=== PATIENT | male | born 1965 | race Hispanic/Latino ===

== ENCOUNTER 2018-11-19 14:32 | Observation (INO) | payer BC ==
--- NOTE | 2018-11-19 16:05 | ED PDOC ---
Arrival/HPI - General Chief Complaint: Weakness/Neurological Deficit Time Seen by Provider: 11/19/18 15:10 Historian: Patient, Spouse - History of Present Illness Narrative History of Present Illness (Text): 11/19/18 17:44 53 y/o male with PMH of DM presents to the ED c/o generalized weakness x 2 weeks. 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 Associated intermittent SOB, not associated with exertion. Also c/o left flank pain worse with movement that intermittently radiates around to the left abdomen, associated urinary frequency and hesitancy. Reports his sugars have been elevated lately but that he takes his home insulin as prescribed [lantus 22 units at night and regular insulin sliding scale in the morning]. Has only had half a bagel to eat today, and has not taken any insulin. 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 No recent travel or sick contacts. Denies trauma/injury, fever, chills, chest pain, cough, N/V/D, weakness, numbness, paresthesias, difficulty speaking, difficulty walking, urinary symptoms, testicular pain/swelling, or any other associated symptoms. Of Note, patient quit smoking cigarettes 16 days ago. Past Medical History - Cardiac Hx Cardiac Disorders: No - Pulmonary Hx Respiratory Disorders: No - Neurological Hx Neurological Disorder: No - HEENT Hx HEENT Disorder: No - Renal Hx Renal Disorder: No - Endocrine/Metabolic Hx Endocrine Disorders: Yes Hx Diabetes Mellitus Type 1: No Hx Diabetes Mellitus Type 2: Yes - Psychiatric Hx Substance Use: No Family/Social History - Physician Review Nursing Documentation Reviewed: Yes Family/Social History: No Known Family HX Smoking Status: Former Smoker Hx Alcohol Use: No Hx Substance Use: No Allergies/Home Meds Allergies/Adverse Reactions: Allergies No Known Allergies Allergy (Verified 11/19/18 15:28) Home Medications: Home Meds Medication Instructions Recorded Confirmed Insulin Glargine, Recombina 26 unit SC HS 11/19/18 11/19/18 [Lantus] Insulin Regular, Human [Afrezza] 4 unit IH AC 11/19/18 11/19/18 Physical Exam Vital Signs Reviewed: Yes Vital Signs Temp Pulse Resp BP Pulse Ox 11/19/18 15:06 98.6 F 65 18 109/68 96 Temperature: Afebrile Blood Pressure: Normal Pulse: Regular Respiratory Rate: Normal Appearance: Positive for: Well-Appearing, Non-Toxic, Comfortable Pain Distress: None Mental Status: Positive for: Alert and Oriented X 3 - Systems Exam Head: Present: Atraumatic, Normocephalic Pupils: Present: PERRL Extroacular Muscles: Present: EOMI Conjunctiva: Present: Normal Mouth: Present: Moist Mucous Membranes Nose (External): Present: Atraumatic Nose (Internal): Present: Normal Inspection Neck: Present: Normal Range of Motion. No: Meningeal Signs, MIDLINE TENDERNESS Respiratory/Chest: Present: Clear to Auscultation, Decreased Breath Sounds (bilaterally), Rales (right lung base). No: Respiratory Distress, Accessory Muscle Use, Retracting, Rhonchi, Tachypneic Cardiovascular: Present: Regular Rate and Rhythm, Normal S1, S2. No: Murmurs Abdomen: Present: Tenderness (mild left side; left flank tenderness), Normal Bowel Sounds. No: Distention, Peritoneal Signs, Rebound, Guarding Back: Present: Normal Inspection. No: CVA Tenderness Upper Extremity: Present: Normal Inspection, Normal ROM, NORMAL PULSES, Neurovascularly Intact, Capillary Refill < 2s. No: Cyanosis, Edema Lower Extremity: Present: Normal Inspection, NORMAL PULSES, Normal ROM, Neurovascularly Intact, Capillary Refill < 2 s, Other (chronic right 5th digit deformity). No: Edema, Swelling Neurological: Present: GCS=15, CN II-XII Intact, Speech Normal, Motor Func Grossly Intact, Normal Sensory Function, Normal Cerebellar Funct, Gait Normal Skin: Present: Warm, Dry, Normal Color. No: Rashes Lymphatic: No: Cervical Adenopathy Psychiatric: Present: Alert, Oriented x 3, Normal Insight, Normal Concentration, Normal Affect, Normal Mood Medical Decision Making ED Course and Treatment: 11/19/18 15:58 Initial Plan: * CBC, CMP * Coags * BNP * Rapid Flu * CXR * EKG * IVF * Insulin * ASA CXR: no active disease CBC: mild anemia at 11.2 CMP: glucose 365; IVF, 7 units insulin ordered to correct Flu: negative UA: unremarkable EKG shows Q waves in anterior leads with multiple PACs; no old EKG for comparison CXR: no active disease Case reviewed with Dr. Hogan, who recommends CT Abd/Pelvis without contrast to evaluate left flank pain. Otherwise agrees with plan of care and disposition. 17:55 CT Abd/Pelvis shows possible mesenteric adenitis, hiatal hernia, splenomegaly, hepatomegaly Blood sugar has dropped to 301 on fingerstick 18:[address] Dale, who accepted patient for inpatient admission to [facility] with diagnosis of hyperglycemia, ekg changes, and fatigue. - Lab Interpretations Lab Results: 11/19/18 16:02 11/19/18 16:02 Lab Results 11/19/18 17:01: Urine Color Yellow, Urine Appearance Clear, Urine pH 6.0, Ur Sp ecific [place] 1.020, Urine Protein Negative, Urine Glucose (UA) >=1000, Urine Ketones Negative, Urine Blood Negative, Urine Nitrate Negative, Urine Bilirubin Negative, Urine Urobilinogen 1.0 H, Ur Leukocyte Esterase Negative 11/19/18 16:59: Urine Opiates Screen Negative, Urine Methadone Screen Negative, Ur Barbiturates Screen Negative, Ur Phencyclidine Scrn Negative, Ur Amphetamines Screen Negative, U Benzodiazepines Scrn Negative, U Oth Cocaine Metabols Negative, U Cannabinoids Screen Negative 11/19/18 16:02: Thyroxine (T4) 6.9, Total T3 0.79 L, TSH 3rd Generation 3.65 11/19/18 16:02: PT 13.3 H, INR 1.16, APTT 30.5 11/19/18 16:02: Sodium 133, Potassium 4.3, Chloride 96 L, Carbon Dioxide 32, Anion Gap 9 L, BUN 19, Creatinine 0.8, Est GFR ( Amer) > 60, Est GFR (Non-Af Amer) > 60, Random Glucose 365 H*, Calcium 8.6, Phosphorus 3.9, Magnesium 2.3 H, Total Bilirubin 0.5, AST 25, ALT 26, Alkaline Phosphatase 152 H , Troponin I < 0.01, NT-Pro-B Natriuret Pep 339, Total Protein 6.7, Albumin 3.4, Globulin 3.3, Albumin/Globulin Ratio 1.0 L 11/19/18 16:02: Influenza Typ A,B (EIA) Negative for flu a/b 11/19/18 16:02: WBC 7.7, RBC 3.59, Hgb 11.2 L, Hct 33.7 L, MCV 93.9, MCH 31.2, MCHC 33.2, RDW 13.2, Plt Count 292, MPV 9.8, Gran % 60.1, Lymph % (Auto) 21.5 L, Alpine % (Auto) 17.3 H, Eos % (Auto) 0.7 L, Baso % (Auto) 0.4, Gran # 4.63, Lymph # (Auto) 1.7, Alpine # (Auto) 1.3 H, Eos # (Auto) 0.1, Baso # (Auto) 0.03 I have reviewed the lab results: Yes - RAD Interpretation Narrative RAD Interpretations (Text): 11/19/18 17:43 CT Abd/Pelvis w/o IV Contrast FINDINGS: There is limited evaluation of the solid organs without the administration of IV contrast. LOWER THORAX: Bibasilar atelectasis/infiltrates. No visible pleural effusion or pneumothorax. Small hiatal hernia/distal esophageal wall thickening. LIVER: Hepatomegaly. GALLBLADDER AND BILE DUCTS: Unremarkable unenhanced appearance. PANCREAS: Unremarkable unenhanced appearance. SPLEEN: Borderline splenomegaly. ADRENALS: Unremarkable unenhanced appearance. KIDNEYS AND URETERS: No hydronephrosis or obstructing renal calculus. BLADDER: The urinary bladder appears unremarkable. REPRODUCTIVE: The prostate gland measures approximately 3.2 x 4.1 cm. APPENDIX: The appendix appears within normal limits of caliber. No secondary signs of acute appendicitis. BOWEL: The stomach is nondistended. Lack of oral contrast limits evaluation for bowel pathology. The bowel loops appear within normal limits of caliber without evidence of intestinal obstruction. PERITONEUM: No significant free fluid. No definite free air. LYMPH NODES: Nonspecific mesenteric adenopathy. VASCULATURE: No significant atherosclerotic calcifications of the aorta. No aortic aneurysm. BONES: Degenerative changes. OTHER FINDINGS: None. IMPRESSION: Nonspecific mesenteric adenopathy. Correlate clinically for possibility of mesenteric adenitis. No evidence of hydronephrosis or obstructing calculus. Hepatomegaly. Borderline splenomegaly. Bibasilar atelectasis/infiltrates. No visible pleural effusion or pneumothorax. Small hiatal hernia/distal esophageal wall thickening. CXR: No active disease Radiology Orders: 11/19/18 15:50 CHEST PORTABLE [RAD] Stat Director Money: Radiologist - EKG Interpretation EKG Interpretation (Text): Rate 61; NSR with PACs; Normal Intervals; No STEMI, Q waves in anterior leads, nonspecific Twave/ST segment changes Interpreted by ED Physician: Yes (Dr. Hogan) Type: 12 lead EKG Comparison: No previous EKG avail. Disposition/Present on Arrival - Present on Arrival Any Indicators Present on Arrival: No History of DVT/PE: No History of Uncontrolled Diabetes: No Urinary Catheter: No History of Decub. Ulcer: No History Surgical Site Infection Following: None - Disposition Have Diagnosis and Disposition been Completed?: Yes Diagnosis: Hyperglycemia, Fatigue, Anemia, Acute electrocardiogram changes, Flank pain Disposition: HOSPITALIZED Disposition Time: 17:45 Patient Plan: Admission Patient Problems: Current Active Problems Problem Status Onset Acute electrocardiogram changes Acute Anemia Acute Fatigue Acute Hyperglycemia Acute Condition: STABLE
[2018-11-19 16:07] LABS: BASO # 0.03 K/mm3 (0.0-2.0); BASO % 0.4 % (0.0-3.0); EOS # 0.1 (0.0-0.7); EOS % 0.7 % (1.5-5.0); GRAN # 4.63 (1.4-6.5); GRAN % 60.1 % (50.0-68.0); HEMOGLOBIN 11.2 g/dL (14.0-18.0); LYMPH # 1.7 (1.2-3.4); LYMPH % 21.5 % (22.0-35.0); MEAN CELL VOLUME 93.9 fl (80.0-105.0); MEAN CORPUSCULAR HEMOGLOBIN 31.2 pg (25.0-35.0); MEAN CORPUSCULAR HGB CONC 33.2 g/dl (31.0-37.0); MEAN PLATELET VOLUME 9.8 fl (7.0-11.0); MONO # 1.3 (0.1-0.6); MONO % 17.3 % (1.0-6.0); RBC 3.59 10^6/uL (3.5-6.1); RED CELL DISTRIBUTION WIDTH 13.2 % (11.5-14.5); WHITE BLOOD COUNT 7.7 10^3/uL (4.5-11.0)
[2018-11-19 16:17] LABS: INR 1.16; PARTIAL THROMBOPLASTIN TIME 30.5 Seconds (25.1-36.5); PROTHROMBIN TIME 13.3 SECONDS (9.4-12.5)
[2018-11-19] MEDS ORDERED: Insulin Regular 1 UNITS/0.01 ML ML SC STA (16:23)
[2018-11-19] MEDS ORDERED: Sodium Chloride 0.9% 500 ML IV STA (16:27)
--- NOTE | 2018-11-19 16:27 | RAD ---
Date of service: 11/19/2018 HISTORY: SOB COMPARISON: No prior. FINDINGS: LUNGS: No active pulmonary disease. PLEURA: No significant pleural effusion identified, no pneumothorax apparent. CARDIOVASCULAR: No aortic atherosclerotic calcification present. Normal cardiac size. No pulmonary vascular congestion. OSSEOUS STRUCTURES: No significant abnormalities. VISUALIZED UPPER ABDOMEN: Normal. OTHER FINDINGS: None. IMPRESSION: No active disease.
[2018-11-19 16:29] LABS: B-TYPE NATRIURETIC PEPTIDE 339 pg/mL (0-450); TROPONIN I < 0.01 ng/mL
[2018-11-19 16:35] LABS: T4 6.9 ug/dL (5.5-11.0)
[2018-11-19 16:36] LABS: ALBUMIN 3.4 g/dL (3.0-4.8); ALT/SGPT 26 U/L (7-56); AST/SGOT 25 U/L (17-59); BLOOD UREA NITROGEN 19 mg/dL (7-21); CALCIUM 8.6 mg/dL (8.4-10.5); GFR NON-AFRICAN AMERICAN > 60
[2018-11-19 16:49] LABS: T3 0.79 ng/mL (0.97-1.69)
[2018-11-19 17:07] LABS: URINE BILIRUBIN NEGATIVE (NEGATIVE); URINE BLOOD NEGATIVE (NEGATIVE); URINE GLUCOSE (UA) >=1000 mg/dL (NEGATIVE); URINE LEUKOCYTE ESTERASE NEGATIVE Leu/uL (NEGATIVE); URINE PROTEIN NEGATIVE mg/dL (<30 mg/dL)
[2018-11-19 17:16] LABS: URINE APPEARANCE CLEAR (CLEAR); URINE COLOR YELLOW (YELLOW)
[2018-11-19 17:36] LABS: BARBITURATES, UR NEGATIVE (NEGATIVE); BENZODIAZEPINES, UR NEGATIVE (NEGATIVE); OPIATES, UR NEGATIVE (NEGATIVE); PHENCYCLIDINE, UR NEGATIVE (NEGATIVE)
--- NOTE | 2018-11-19 17:44 | CT ---
PROCEDURE: CT Abdomen and Pelvis without Oral or IV contrast. HISTORY: flank pain COMPARISON: None available. TECHNIQUE: Contiguous axial images of the abdomen and pelvis. No oral or IV contrast administered. Coronal and Sagittal reformats generated and reviewed. Radiation dose: Total exam DLP = 422.35 mGy-cm. This CT exam was performed using one or more of the following dose reduction techniques: Automated exposure control, adjustment of the mA and/or kV according to patient size, and/or use of iterative reconstruction technique. FINDINGS: There is limited evaluation of the solid organs without the administration of IV contrast. LOWER THORAX: Bibasilar atelectasis/infiltrates. No visible pleural effusion or pneumothorax. Small hiatal hernia/distal esophageal wall thickening. LIVER: Hepatomegaly. GALLBLADDER AND BILE DUCTS: Unremarkable unenhanced appearance. PANCREAS: Unremarkable unenhanced appearance. SPLEEN: Borderline splenomegaly. ADRENALS: Unremarkable unenhanced appearance. KIDNEYS AND URETERS: No hydronephrosis or obstructing renal calculus. BLADDER: The urinary bladder appears unremarkable. REPRODUCTIVE: The prostate gland measures approximately 3.2 x 4.1 cm. APPENDIX: The appendix appears within normal limits of caliber. No secondary signs of acute appendicitis. BOWEL: The stomach is nondistended. Lack of oral contrast limits evaluation for bowel pathology. The bowel loops appear within normal limits of caliber without evidence of intestinal obstruction. PERITONEUM: No significant free fluid. No definite free air. LYMPH NODES: Nonspecific mesenteric adenopathy. VASCULATURE: No significant atherosclerotic calcifications of the aorta. No aortic aneurysm. BONES: Degenerative changes. OTHER FINDINGS: None. IMPRESSION: Nonspecific mesenteric adenopathy. Correlate clinically for possibility of mesenteric adenitis. No evidence of hydronephrosis or obstructing calculus. Hepatomegaly. Borderline splenomegaly. Bibasilar atelectasis/infiltrates. No visible pleural effusion or pneumothorax. Small hiatal hernia/distal esophageal wall thickening.
--- NOTE | 2018-11-19 18:24 | CP.PCM.HP ---
<BradlyDarshana - Last Filed: 11/20/18 13:44> History of Present Illness - History of Present Illness History of Present Illness: Darshana Abdullahi, PGY-1 Medicine H&P for Dr. Ibanez: CC: Generalized weakness Pt is a 53 yo M with pmhx of IDDM who presents to the ED for 2 week hx of generalized weakness and intermittent SOB. Pt also states that recently he has been requiring more insulin for similar meals lately. Pt states that he also noted that his sugars have been running higher lately. Pt states that he is complaint on his medication and states that he currently takes 26 units of lantu s at night and a sliding scale during the day. Pt denies any recent changes in his insulin regimen or his diet. He also states that he has neuropathy and is s/p partial 5th digit R metatarsal amputation. 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 At this time he denies fevers, chills, lightheadedness, headaches, numbness, tingling, chest pain, cough, abd pain, n/v, c/d, dysuria or frequency. He admits to intermittent SOB and cough when he smokes. He also admits to L flank pain but denies hematuria. Pmhx: IDDM Pshx: Denies Meds: Insulin All: NKDA Social: quit smoking 16 days ago, previous 1ppd x 36 yrs, denies any EtOH or illicit drug use Fam: Paternal Grandfather: DM PMD: [employer] Pharm: [employer] in [place] Present on Admission - Present on Admission Any Indicators Present on Admission: No Review of Systems - Review of Systems Review of Systems: 12 point ROS reviewed and negative except for noted in HPI above. Past Patient History - Past Social History Smoking Status: Never Smoked - CARDIAC Hx Cardiac Disorders: No - PULMONARY Hx Respiratory Disorders: No - NEUROLOGICAL Hx Neurological Disorder: No - HEENT Hx HEENT Problems: No - RENAL Hx Chronic Kidney Disease: No - ENDOCRINE/METABOLIC Hx Endocrine Disorders: Yes Hx Diabetes Mellitus Type 1: No Hx Diabetes Mellitus Type 2: Yes - PSYCHIATRIC Hx Substance Use: No - SURGICAL HISTORY Hx Surgeries: No Meds Allergies/Adverse Reactions: Allergies Allergy/AdvReac Type Severity Reaction Status Date / Time No Known Allergies Allergy Verified 11/19/18 15:28 Physical Exam - Constitutional Appears: Non-toxic, No Acute Distress - Head Exam Head Exam: ATRAUMATIC, NORMAL INSPECTION, NORMOCEPHALIC - Eye Exam Eye Exam: EOMI, Normal appearance, PERRL - Respiratory Exam Respiratory Exam: Clear to Auscultation Bilateral, NORMAL BREATHING PATTERN. absent: Accessory Muscle Use, Decreased Breath Sounds, Rales, Rhonchi, Wheezes, Respiratory Distress, Stridor - Cardiovascular Exam Cardiovascular Exam: RRR, +S1, +S2. absent: Gallop, Rubs - GI/Abdominal Exam GI & Abdominal Exam: Normal Bowel Sounds, Soft. absent: Distended, Firm, Guarding, Tenderness - Extremities Exam Extremities exam: Positive for: normal capillary refill, pedal pulses present. Negative for: calf tenderness, pedal edema Additional comments: Pt has evidence of 5th digit partial amputation on R foot, with a well healed scar and no noted erythema or drainage. - Back Exam Back exam: NORMAL INSPECTION. absent: CVA tenderness (L), CVA tenderness (R) - Neurological Exam Neurological exam: Alert, Oriented x3 - Psychiatric Exam Psychiatric exam: Normal Affect, Normal Mood - Skin Skin Exam: Dry, Intact (except where noted above), Normal Color, Warm Results - Vital Signs Recent Vital Signs: Last Vital Signs Temp 98.6 F 11/19/18 15:06 Pulse 85 11/19/18 18:02 Resp 18 11/19/18 18:02 BP 108/70 11/19/18 18:02 Pulse Ox 99 11/19/18 18:02 - Labs Result Diagrams: 11/20/18 02:00 11/20/18 02:00 Labs: Laboratory Results - last 24 hr 11/19/18 11/19/18 11/19/18 15:15 16:02 16:02 WBC 7.7 RBC 3.59 Hgb 11.2 L Hct 33.7 L MCV 93.9 MCH 31.2 MCHC 33.2 RDW 13.2 Plt Count 292 MPV 9.8 Gran % 60.1 Lymph % (Auto) 21.5 L Mcminn % (Auto) 17.3 H Eos % (Auto) 0.7 L Baso % (Auto) 0.4 Gran # 4.63 Lymph # (Auto) 1.7 Mcminn # (Auto) 1.3 H Eos # (Auto) 0.1 Baso # (Auto) 0.03 PT INR APTT Sodium Potassium Chloride Carbon Dioxide Anion Gap BUN Creatinine Est GFR ( Amer) Est GFR (Non-Af Amer) POC Glucose (mg/dL) 350 H Random Glucose Calcium Phosphorus Magnesium Total Bilirubin AST ALT Alkaline Phosphatase Troponin I NT-Pro-B Natriuret Pep Total Protein Albumin Globulin Albumin/Globulin Ratio Thyroxine (T4) Total T3 TSH 3rd Generation Urine Color Urine Appearance Urine pH Ur Specific Hanna Urine Protein Urine Glucose (UA) Urine Ketones Urine Blood Urine Nitrate Urine Bilirubin Urine Urobilinogen Ur Leukocyte Esterase Urine Opiates Screen Urine Methadone Screen Ur Barbiturates Screen Ur Phencyclidine Scrn Ur Amphetamines Screen U Benzodiazepines Scrn U Oth Cocaine Metabols U Cannabinoids Screen Influenza Typ A,B (EIA) Negative for flu a/b 11/19/18 11/19/18 11/19/18 16:02 16:02 16:02 WBC RBC Hgb Hct MCV MCH MCHC RDW Plt Count MPV Gran % Lymph % (Auto) Mcminn % (Auto) Eos % (Auto) Baso % (Auto) Gran # Lymph # (Auto) Mcminn # (Auto) Eos # (Auto) Baso # (Auto) PT 13.3 H INR 1.16 APTT 30.5 Sodium 133 Potassium 4.3 Chloride 96 L Carbon Dioxide 32 Anion Gap 9 L BUN 19 Creatinine 0.8 Est GFR ( Amer) > 60 Est GFR (Non-Af Amer) > 60 POC Glucose (mg/dL) Random Glucose 365 H* Calcium 8.6 Phosphorus 3.9 Magnesium 2.3 H Total Bilirubin 0.5 AST 25 ALT 26 Alkaline Phosphatase 152 H Troponin I < 0.01 NT-Pro-B Natriuret Pep 339 Total Protein 6.7 Albumin 3.4 Globulin 3.3 Albumin/Globulin Ratio 1.0 L Thyroxine (T4) 6.9 Total T3 0.79 L TSH 3rd Generation 3.65 Urine Color Urine Appearance Urine pH Ur Specific Hanna Urine Protein Urine Glucose (UA) Urine Ketones Urine Blood Urine Nitrate Urine Bilirubin Urine Urobilinogen Ur Leukocyte Esterase Urine Opiates Screen Urine Methadone Screen Ur Barbiturates Screen Ur Phencyclidine Scrn Ur Amphetamines Screen U Benzodiazepines Scrn U Oth Cocaine Metabols U Cannabinoids Screen Influenza Typ A,B (EIA) 11/19/18 11/19/1819 16:59 17:01 17:53 WBC RBC Hgb Hct MCV MCH MCHC RDW Plt Count MPV Gran % Lymph % (Auto) Mcminn % (Auto) Eos % (Auto) Baso % (Auto) Gran # Lymph # (Auto) Mcminn # (Auto) Eos # (Auto) Baso # (Auto) PT INR APTT Sodium Potassium Chloride Carbon Dioxide Anion Gap BUN Creatinine Est GFR ( Amer) Est GFR (Non-Af Amer) POC Glucose (mg/dL) 301 H Random Glucose Calcium Phosphorus Magnesium Total Bilirubin AST ALT Alkaline Phosphatase Troponin I NT-Pro-B Natriuret Pep Total Protein Albumin Globulin Albumin/Globulin Ratio Thyroxine (T4) Total T3 TSH 3rd Generation Urine Color Yellow Urine Appearance Clear Urine pH 6.0 Ur Specific Hanna 1.020 Urine Protein Negative Urine Glucose (UA) >=1000 Urine Ketones Negative Urine Blood Negative Urine Nitrate Negative Urine Bilirubin Negative Urine Urobilinogen 1.0 H Ur Leukocyte Esterase Negative Urine Opiates Screen Negative Urine Methadone Screen Negative Ur Barbiturates Screen Negative Ur Phencyclidine Scrn Negative Ur Amphetamines Screen Negative U Benzodiazepines Scrn Negative U Oth Cocaine Metabols Negative U Cannabinoids Screen Negative Influenza Typ A,B (EIA) Assessment & Plan - Assessment and Plan (Free Text) Assessment: Pt is a 53 yo M with pmhx of IDDM who presents to the ED for 2 week hx of generalized weakness and intermittent SOB. Plan: 1) Generalized weakness - Likely 2/2 hyperglycemia - TSH - Trend trops - Lipid profile - UA - UCx - ISS to better control sugar - Cont to monitor 2) Uncontrolled IDDM: - HbA1c - ISS - medium - Carb consistent diet - Levamir 26 units qhs PPx: GI: Protonix 40 DVT: SCDs Case seen and discussed with Dr. Shamar Abdullahi, PGY-1 <Maggie Ibanez - Last Filed: 11/23/18 20:36> Results - Vital Signs Recent Vital Signs: Last Vital Signs Temp 98.4 F 11/21/18 12:00 Pulse 54 L 11/21/18 12:00 Resp 21 11/21/18 12:00 BP 109/55 L 11/21/18 12:00 Pulse Ox 98 11/21/18 06:00 - Labs Result Diagrams: 11/21/18 07:00 11/21/18 07:00 Attending/Attestation - Attestation I have personally seen and examined this patient.: Yes I have fully participated in the care of the patient.: Yes I have reviewed all pertinent clinical information: Yes Notes (Text): 11/23/18 20:29 pt seen with the resident by the bedside. Case discussed in detail. Agree with documentation,assessment and plan of treatment,
[2018-11-19] MEDS ORDERED: Dextrose 50% SYRINGE Inj (50 ml) IV PRN (20:24)
[2018-11-19] MEDS: Insulin Lispro (humaLOG) MEDIUM Coverage SC SCH (22:20)
[2018-11-20 02:29] LABS: BASO # 0.04 K/mm3 (0.0-2.0); BASO % 0.6 % (0.0-3.0); EOS # 0.1 (0.0-0.7); GRAN # 3.84 (1.4-6.5); GRAN % 55.7 % (50.0-68.0); LYMPH # 2.1 (1.2-3.4); LYMPH % 30.7 % (22.0-35.0); MEAN CORPUSCULAR HEMOGLOBIN 31.5 pg (25.0-35.0); MEAN CORPUSCULAR HGB CONC 33.5 g/dl (31.0-37.0); MEAN PLATELET VOLUME 9.6 fl (7.0-11.0); MONO # 0.8 (0.1-0.6); RBC 3.81 10^6/uL (3.5-6.1); RED CELL DISTRIBUTION WIDTH 13.3 % (11.5-14.5); WHITE BLOOD COUNT 6.9 10^3/uL (4.5-11.0)
[2018-11-20 02:40] LABS: ALBUMIN 3.7 g/dL (3.0-4.8); ALT/SGPT 24 U/L (7-56); AST/SGOT 51 U/L (17-59); BLOOD UREA NITROGEN 16 mg/dL (7-21); CALCIUM 8.6 mg/dL (8.4-10.5); GFR NON-AFRICAN AMERICAN > 60; HDL CHOLESTEROL 27 mg/dL (29-60)
[2018-11-20 02:50] LABS: LDL CHOLESTEROL 80 mg/dL (0-129); TROPONIN I < 0.01 ng/mL
[2018-11-20 04:29] VITALS: BMI 22.4
[2018-11-20] MEDS: Pantoprazole 40 mg EC Tab PO SCH (07:06)
[2018-11-20] MEDS: Insulin Lispro (humaLOG) MEDIUM Coverage SC SCH ×4 (07:11→21:55)
--- NOTE | 2018-11-20 09:45 | CARD ---
APPROVED REPORT Date of service: 11/19/2018 EKG Measurement Heart [id number] [place] 162P [id number] <Conclusion> Sinus rhythm with premature atrial complexes Septal infarct, age undetermined NSSTW changes
[2018-11-20] MEDS: Insulin Detemir 100 units/ml Vial (Levemir) SC SCH ×2 (09:54→21:53)
[2018-11-20] MEDS ORDERED: Metoprolol 1 mg/ml Inj IVP STA (11:17)
[2018-11-20] MEDS ORDERED: Metoprolol 1 mg/ml Inj ONE (11:25)
--- NOTE | 2018-11-20 13:57 | CP.PCM.PN ---
<Darshana Abdullahi - Last Filed: 11/20/18 15:58> Subjective - Date & Time of Evaluation Date of Evaluation: 11/20/18 Time of Evaluation: 13:49 - Subjective Subjective: Darshana Abdullahi, PGY-[address] Dale: Pt was seen and examined this AM at bedside. Pt states that he continues to have L sided abdominal pain. He states that hes generalized weakness has improved. Pt states that his SOB only truly affects him when he smokes, and has not had an issue with it so far during this stay. He denies having any acute complaints at this time and denies fevers, chills, headache, SOB, cough, chest pain, abd pain, n/v, c/d, or dysuria. Objective - Vital Signs/Intake and Output Vital Signs (last 24 hours): Temp Pulse Resp BP Pulse Ox 98.8 F 136 H 20 102/74 99 11/20/18 06:00 11/20/18 11:29 11/20/18 06:00 11/20/18 11:29 11/20/18 00:36 Intake and Output: 11/20/18 11/20/18 06:59 18:59 Intake Total 270 Balance 270 - Medications Medications: Current Medications Aspirin (Ecotrin) 81 mg PO DAILY [facility] Last Admin: 11/20/18 11:48 Dose: 81 mg Atorvastatin Calcium (Lipitor) 20 mg PO DIN [facility] Dextrose (Dextrose 50% Inj) 0 ml IV STAT PRN; Protocol PRN Reason: Hypoglycemia Protocol Dextrose (Dextrose 5% In Water 1000 Ml) 1,000 mls @ 0 mls/hr IV .Q0M PRN; Protocol PRN Reason: Hypoglycemia Protocol Insulin Detemir (Levemir) 13 unit SC Q12H [facility] Last Admin: 11/20/18 09:54 Dose: 13 units Insulin Human Lispro (Humalog Med) 0 units SC ACHS [facility]; Protocol Last Admin: 11/20/18 11:48 Dose: 7 unit Metoprolol Tartrate (Lopressor) 25 mg PO BID [facility] Last Admin: 11/20/18 11:38 Dose: Not Given Pantoprazole Sodium (Protonix Ec Tab) 40 mg PO 0600 [facility] Last Admin: 11/20/18 07:06 Dose: 40 mg - Labs Labs: 11/20/18 02:00 11/20/18 02:00 PT 13.3 SECONDS (9.4-12.5) H 11/19/18 16:02 INR 1.16 11/19/18 16:02 APTT 30.5 Seconds (25.1-36.5) 11/19/18 16:02 - Constitutional Appears: Non-toxic, No Acute Distress - Head Exam Head Exam: ATRAUMATIC, NORMAL INSPECTION, NORMOCEPHALIC - Eye Exam Eye Exam: EOMI, Normal appearance - Respiratory Exam Respiratory Exam: Clear to Ausculation Bilateral, NORMAL BREATHING PATTERN. absent: Accessory Muscle Use, Rales, Rhonchi, Wheezes, Respiratory Distress, Stridor - Cardiovascular Exam Cardiovascular Exam: RRR, +S1, +S2. absent: Gallop, Rubs - GI/Abdominal Exam GI & Abdominal Exam: Soft, Normal Bowel Sounds. absent: Firm, Guarding, Rigid, Tenderness - Extremities Exam Additional comments: Pt has evidence of 5th digit partial amputation on R foot, with a well healed scar and no noted erythema or drainage. - Back Exam Back Exam: NORMAL INSPECTION. absent: CVA tenderness (L), CVA tenderness (R) - Neurological Exam Neurological Exam: Alert, Awake, Oriented x3 - Psychiatric Exam Psychiatric exam: Normal Affect, Normal Mood - Skin Skin Exam: Dry, Intact (except where noted above), Normal Color, Warm Assessment and Plan - Assessment and Plan (Free Text) Assessment: Pt is a 53 yo M with pmhx of IDDM who presents to the ED for 2 week hx of generalized weakness and intermittent SOB. Pt noted to have hyperglycemia. Pt also noted to be sinus tach on monitor and has elevated BP. Cardio consulted. Plan: 1) Generalized weakness - Likely 2/2 hyperglycemia - TSH - TSH in wnl - Trops (-) x 3 - Lipid profile - T, Chol: 151, LDL:80, HDL:27 - UA (-) - ISS to better control sugar - Cont to monitor 2) Uncontrolled IDDM: - HbA1c - ISS - medium - Carb consistent diet - Levamir 13 units in AM and PM - With DM hx ASCVD risk factor was calculated to be 16%, started on lipitor and ASA 3) Sinus Tachycardia: - Pt noted to be tachy in the 120s - IV Metroprolol 5 given once per cardio recs - Cardio consulted, recs appreciated - lopressor 25 BID PPx: GI: Protonix 40 DVT: SCDs Case seen and discussed with Dr. Chito Abdullahi, PGY-1 <Estephanie Dale - Last Filed: 11/20/18 16:39> Objective - Vital Signs/Intake and Output Vital Signs (last 24 hours): Temp Pulse Resp BP Pulse Ox 97.1 F L 119 H 20 100/69 99 11/20/18 12:00 11/20/18 12:00 11/20/18 12:00 11/20/18 12:00 11/20/18 00:36 Intake and Output: 11/20/18 11/20/18 06:59 18:59 Intake Total 270 Balance 270 - Medications Medications: Current Medications Aspirin (Ecotrin) 81 mg PO DAILY [facility] Last Admin: 11/20/18 11:48 Dose: 81 mg Atorvastatin Calcium (Lipitor) 20 mg PO DIN [facility] Dextrose (Dextrose 50% Inj) 0 ml IV STAT PRN; Protocol PRN Reason: Hypoglycemia Protocol Dextrose (Dextrose 5% In Water 1000 Ml) 1,000 mls @ 0 mls/hr IV .Q0M PRN; Protocol PRN Reason: Hypoglycemia Protocol Insulin Detemir (Levemir) 13 unit SC Q12H [facility] Last Admin: 11/20/18 09:54 Dose: 13 units Insulin Human Lispro (Humalog Med) 0 units SC ACHS [facility]; Protocol Last Admin: 11/20/18 11:48 Dose: 7 unit Metoprolol Tartrate (Lopressor) 25 mg PO BID [facility] Last Admin: 11/20/18 11:38 Dose: Not Given Pantoprazole Sodium (Protonix Ec Tab) 40 mg PO 0600 [facility] Last Admin: 11/20/18 07:06 Dose: 40 mg - Labs Labs: 11/20/18 02:00 11/20/18 02:00 PT 13.3 SECONDS (9.4-12.5) H 11/19/18 16:02 INR 1.16 11/19/18 16:02 APTT 30.5 Seconds (25.1-36.5) 11/19/18 16:02 Attending/Attestation - Attestation I have personally seen and examined this patient.: Yes I have fully participated in the care of the patient.: Yes I have reviewed all pertinent clinical information, including history, physical exam and plan: Yes Notes (Text): 11/20/18 16:36 53 year old male with past medical history of diabetes who presented with complaint of generalized weakness and shortness of breath. He was found to have poorly controlled diabetes and also junctional tachycardia today on the telemonitor. TSH normal. Serial cardiac enzymes were negative. Cardiology evaluation was requested. He is started on metoprolol, lipitor and aspirin. Will follow up on echocardiogram. Continue with insulin ss and levemir for diabetes. Estephanie Dale MD Hospitalist.
--- NOTE | 2018-11-20 16:19 | CON ---
DATE: 11/20/2018 LOCATION: The patient is in room 263 and bed 2. REASON FOR CONSULTATION: Tachycardia. HISTORY OF PRESENT ILLNESS: A 53-year-old male, who is insulin dependent diabetes mellitus, came to emergency room with complaining of generalized weakness of 2 weeks duration, also has intermittent history of shortness of breath. The patient is on telemetry. He found to have junctional tachycardia. The patient is asymptomatic, consult has been requested to evaluate the tachycardia. The patient denies any history of exertional chest pain or palpitation or dizziness or syncope. He has no history of any cardiac problem. PAST MEDICAL HISTORY: Positive for insulin dependent diabetes mellitus. PERSONAL HISTORY: He used to smoke one pack a day, stopped about 16 days ago. Denies any alcohol or illicit drug use. ALLERGIES: DENIES ANY ALLERGIES. FAMILY HISTORY: Positive for diabetes. MEDICATIONS: At home, the patient says that he was taking regular insulin 4 units in the morning and Lantus 26 units in the evening. REVIEW OF SYSTEMS: All systems reviewed, positives mentioned in the history other than negative. PHYSICAL EXAMINATION VITAL SIGNS: Blood pressure 153/71, respirations 20, pulse 65, temperature 98.8. HEENT: Head is normocephalic. Eyes: Pupils normal. Conjunctivae normal. NECK: JVP low. Carotid equal. Thorax AP diameter normal. LUNGS: Clear. CARDIOVASCULAR: S1 and S2. ABDOMEN: Soft and nontender. No organomegaly. Bowel sounds normal. EXTREMITIES: No clubbing. No cyanosis. LABORATORY DATA: WBC 6.9, hemoglobin 12.0, hematocrit 35.8, and platelets 304. Sodium 133, potassium 4.6, BUN 16, and creatinine 0.6. Random sugar 382. Troponin less than 0.01. TSH 4.37 which is normal. Cholesterol 151, LDL 80, triglycerides 218. Chest x-ray clear. Echocardiogram showed sinus rhythm with premature atrial complexes. Poor progression of RV lead that is questionable septal infarcts . Monitor rhythm skip showed an evidence of junctional tachycardia, rate about to 120 per minute. DIAGNOSES: Episode of junctional tachycardia. The patient also has multifocal atrial rhythm with moderate ventricular rate. Insulin dependent diabetes mellitus. PLAN: We will give Lopressor 5 mg IV stat dose I know also having heart rate of 120 per minute and we will put Lopressor 25 mg two times a day. We will do echocardiogram to evaluate chamber sizes in LV function. The patient was also suggested stress test, but he refused. He says a few years back he had a stress test, but he does not want to repeat it anymore. We will also add Ecotrin 81 mg p.o. daily. The patient already on Lipitor 20 mg daily and Protonix 40 mg daily. We will continue present therapy and we will follow with you. Nicho Ross MD
[2018-11-21 03:44] VITALS: O2SAT 98
[2018-11-21] MEDS: Pantoprazole 40 mg EC Tab PO SCH (06:48)
[2018-11-21 07:16] LABS: BASO # 0.03 K/mm3 (0.0-2.0); BASO % 0.4 % (0.0-3.0); EOS # 0.1 (0.0-0.7); EOS % 1.1 % (1.5-5.0); GRAN # 4.33 (1.4-6.5); GRAN % 61.5 % (50.0-68.0); LYMPH # 1.8 (1.2-3.4); LYMPH % 25.7 % (22.0-35.0); MEAN CELL VOLUME 93.3 fl (80.0-105.0); MEAN CORPUSCULAR HEMOGLOBIN 30.6 pg (25.0-35.0); MEAN CORPUSCULAR HGB CONC 32.7 g/dl (31.0-37.0); MEAN PLATELET VOLUME 9.5 fl (7.0-11.0); MONO # 0.8 (0.1-0.6); MONO % 11.3 % (1.0-6.0); RBC 3.6 10^6/uL (3.5-6.1); RED CELL DISTRIBUTION WIDTH 13.4 % (11.5-14.5); WHITE BLOOD COUNT 7.1 10^3/uL (4.5-11.0)
--- NOTE | 2018-11-21 07:16 | CP.PCM.PN ---
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 Reason for consultation and follow up:Cardiac evaluation of tachycardia, admitted for generalized weakness Seen and examined by me and Dr. Navarrete Objective - Vital Signs/Intake and Output Vital Signs (last 24 hours): Temp Pulse Resp BP Pulse Ox 98.0 F 72 18 109/56 L 98 11/21/18 06:00 11/21/18 06:00 11/21/18 06:00 11/21/18 06:00 11/21/18 06:00 Intake and Output: 11/21/18 11/21/18 06:59 18:59 Intake Total 1640 Balance 1640 - Medications Medications: Current Medications Aspirin (Ecotrin) 81 mg PO DAILY [facility] Last Admin: 11/20/18 11:48 Dose: 81 mg Atorvastatin Calcium (Lipitor) 20 mg PO DIN [facility] Last Admin: 11/20/18 18:20 Dose: 20 mg Dextrose (Dextrose 50% Inj) 0 ml IV STAT PRN; Protocol PRN Reason: Hypoglycemia Protocol Dextrose (Dextrose 5% In Water 1000 Ml) 1,000 mls @ 0 mls/hr IV .Q0M PRN; Protocol PRN Reason: Hypoglycemia Protocol Insulin Detemir (Levemir) 13 unit SC Q12H [facility] Last Admin: 11/20/18 21:53 Dose: 13 units Insulin Human Lispro (Humalog Med) 0 units SC ACHS [facility]; Protocol Last Admin: 11/20/18 21:55 Dose: Not Given Metoprolol Tartrate (Lopressor) 25 mg PO BID [facility] Last Admin: 11/20/18 18:20 Dose: 25 mg Pantoprazole Sodium (Protonix Ec Tab) 40 mg PO 0600 [facility] Last Admin: 11/21/18 06:48 Dose: 40 mg - Labs Labs: 11/20/18 02:00 11/20/18 02:00 PT 13.3 SECONDS (9.4-12.5) H 11/19/18 16:02 INR 1.16 11/19/18 16:02 APTT 30.5 Seconds (25.1-36.5) 11/19/18 16:02 - Constitutional Appears: Non-toxic, No Acute Distress - Head Exam Head Exam: NORMAL INSPECTION, NORMOCEPHALIC - Eye Exam Eye Exam: Normal appearance Pupil Exam: NORMAL ACCOMODATION - ENT Exam ENT Exam: Mucous Membranes Moist, Normal Exam - Respiratory Exam Respiratory Exam: Clear to Ausculation Bilateral, NORMAL BREATHING PATTERN - Cardiovascular Exam Cardiovascular Exam: REGULAR RHYTHM, +S1, +S2 Additional comments: Telemetry NSR 70's but while sleeping goes to 50's bradycardia - GI/Abdominal Exam GI & Abdominal Exam: Soft, Normal Bowel Sounds Assessment and Plan - Assessment and Plan (Free Text) Assessment: A 53 year old male who came in to the ER due to generalized weakness and intermittent shortness of breath. Cardiac consult was called due to episode of junctional tachycardia (120's/min). History of insulin dependent diabetes mellitus, neuropathy,partial 5th digit right metatarsal amputation. Smokes 1 PPD stopped 16 days ago. Also complaining of left flank abdominal pain. CT of abdomen showed nonspecific mesenteric adenopathy,hepatomegaly,bibasalar atelectasis/infiltrates, small hiatal hernia. Chest X ray- no congestion. Troponin normal. EKG showed normal sinus rhythm with premature atrial complexes. IV Lopressor was given and started on oral 25 mg BID. Echo done to evaluate LV function. Recommended stress test but refused. Claimed to have it done few years ago. Heart rate improved with Lopressor. Will start antibiotics for bibasalar infiltrates/ pneumonia. Complained of shortness of breath for the past 2 weeks. 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 Navarrete
[2018-11-21] MEDS ORDERED: Azithromycin 500MG/NS 250ml 500 MG/250 ML BAG IVPB STA (07:47)
[2018-11-21] MEDS: Insulin Lispro (humaLOG) MEDIUM Coverage SC SCH ×2 (07:48→12:36)
[2018-11-21 08:12] LABS: ALB/GLOB RATIO 0.9 (1.1-1.8); ALBUMIN 3.2 g/dL (3.0-4.8); ALT/SGPT 26 U/L (7-56); AST/SGOT 26 U/L (17-59); BLOOD UREA NITROGEN 15 mg/dL (7-21); CALCIUM 8.5 mg/dL (8.4-10.5); GFR NON-AFRICAN AMERICAN > 60
[2018-11-21] MEDS: Insulin Detemir 100 units/ml Vial (Levemir) SC SCH (08:34)
[2018-11-21] MEDS ORDERED: cefTRIAXone 1 gm 1 GM/100 ML BAG IVPB SCH (10:00)
[2018-11-21 12:42] VITALS: BP 109/55; PULSE 54; RESP 21; TEMP 98.4
--- NOTE | 2018-11-21 17:40 | CP.PCM.DIS ---
<Darshana Abdullahi - Last Filed: 11/23/18 19:02> Provider - Provider Date of Admission: 11/19/18 18:05 Attending physician: Estephanie Dale MD Consults: 11/20/18 04:29 Transition In Care/Readmission Reduction Routine Comment: Physician Instructions: Reason For Exam: protocol 11/20/18 08:40 Consult [Physician Consult] Routine Comment: Consulting Provider: Nicho Navarrete Consulting Physician: Nicho Navarrete Reason for Consult: tachycardia Time Spent in preparation of Discharge (in minutes): 45 Hospital Course - Lab Results Lab Results: Most Recent Lab Values WBC 7.1 10^3/uL (4.5-11.0) 11/21/18 07:00 RBC 3.60 10^6/uL (3.5-6.1) 11/21/18 07:00 Hgb 11.0 g/dL (14.0-18.0) L 11/21/18 07:00 Hct 33.6 % (42.0-52.0) L 11/21/18 07:00 MCV 93.3 fl (80.0-105.0) 11/21/18 07:00 MCH 30.6 pg (25.0-35.0) 11/21/18 07:00 MCHC 32.7 g/dl (31.0-37.0) 11/21/18 07:00 RDW 13.4 % (11.5-14.5) 11/21/18 07:00 Plt Count 289 10^3/uL (120.0-450.0) 11/21/18 07:00 MPV 9.5 fl (7.0-11.0) 11/21/18 07:00 Gran % 61.5 % (50.0-68.0) 11/21/18 07:00 Lymph % (Auto) 25.7 % (22.0-35.0) 11/21/18 07:00 [place] % (Auto) 11.3 % (1.0-6.0) H 11/21/18 07:00 Eos % (Auto) 1.1 % (1.5-5.0) L 11/21/18 07:00 Baso % (Auto) 0.4 % (0.0-3.0) 11/21/18 07:00 Gran # 4.33 (1.4-6.5) 11/21/18 07:00 Lymph # (Auto) 1.8 (1.2-3.4) 11/21/18 07:00 [place] # (Auto) 0.8 (0.1-0.6) H 11/21/18 07:00 Eos # (Auto) 0.1 (0.0-0.7) 11/21/18 07:00 Baso # (Auto) 0.03 K/mm3 (0.0-2.0) 11/21/18 07:00 PT 13.3 SECONDS (9.4-12.5) H 11/19/18 16:02 INR 1.16 11/19/18 16:02 APTT 30.5 Seconds (25.1-36.5) 11/19/18 16:02 Sodium 137 mmol/L (132-148) 11/21/18 07:00 Potassium 4.0 mmol/L (3.6-5.0) 11/21/18 07:00 Chloride 103 mmol/L (98-107) 11/21/18 07:00 Carbon Dioxide 31 mmol/L (21-33) 11/21/18 07:00 Anion Gap 8 (10-20) L 11/21/18 07:00 BUN 15 mg/dL (7-21) 11/21/18 07:00 Creatinine 0.7 mg/dl (0.8-1.5) L 11/21/18 07:00 Est GFR ( Amer) > 60 11/21/18 07:00 Est GFR (Non-Af Amer) > 60 11/21/18 07:00 POC Glucose (mg/dL) 119 mg/dL (65-110) H 11/21/18 11:24 Random Glucose 119 mg/dL (70-110) H 11/21/18 07:00 Hemoglobin A1c 10.8 % (4.2-6.5) H 11/19/18 20:30 Calcium 8.5 mg/dL (8.4-10.5) 11/21/18 07:00 Phosphorus 3.4 mg/dL (2.5-4.5) 11/20/18 02:00 Magnesium 2.3 mg/dL (1.7-2.2) H 11/19/18 16:02 Total Bilirubin 0.3 mg/dL (0.2-1.3) 11/21/18 07:00 AST 26 U/L (17-59) 11/21/18 07:00 ALT 26 U/L (7-56) 11/21/18 07:00 Alkaline Phosphatase 139 U/L (38-126) H D 11/21/18 07:00 Troponin I < 0.01 ng/mL 11/20/18 10:09 NT-Pro-B Natriuret Pep 339 pg/mL (0-450) 11/19/18 16:02 Total Protein 6.6 g/dL (5.8-8.3) 11/21/18 07:00 Albumin 3.2 g/dL (3.0-4.8) 11/21/18 07:00 Globulin 3.4 gm/dL 11/21/18 07:00 Albumin/Globulin Ratio 0.9 (1.1-1.8) L 11/21/18 07:00 Triglycerides 218 mg/dL (35-160) H 11/20/18 02:00 Cholesterol 151 mg/dL (130-200) 11/20/18 02:00 LDL Cholesterol Direct 80 mg/dL (0-129) 11/20/18 02:00 HDL Cholesterol 27 mg/dL (29-60) L 11/20/18 02:00 Procalcitonin 0.11 NG/ML (0.19-0.49) L 11/20/18 10:09 Thyroxine (T4) 6.9 ug/dL (5.5-11.0) 11/19/18 16:02 Total T3 0.79 ng/mL (0.97-1.69) L 11/19/18 16:02 TSH 3rd Generation 4.37 mIU/mL (0.46-4.68) 11/20/18 02:00 Urine Color Yellow (YELLOW) 11/19/18 17:01 Urine Appearance Clear (CLEAR) 11/19/18 17:01 Urine pH 6.0 (4.7-8.0) 11/19/18 17:01 Ur Specific [place] 1.020 (1.005-1.035) 11/19/18 17:01 Urine Protein Negative mg/dL (<30 mg/dL) 11/19/18 17:01 Urine Glucose (UA) >=1000 mg/dL (NEGATIVE) 11/19/18 17:01 Urine Ketones Negative mg/dL (NEGATIVE) 11/19/18 17:01 Urine Blood Negative (NEGATIVE) 11/19/18 17:01 Urine Nitrate Negative (NEGATIVE) 11/19/18 17:01 Urine Bilirubin Negative (NEGATIVE) 11/19/18 17:01 Urine Urobilinogen 1.0 E.U./dL (<1 E.U./dL) H 11/19/18 17:01 Ur Leukocyte Esterase Negative Gayle/uL (NEGATIVE) 11/19/18 17:01 Urine Opiates Screen Negative (NEGATIVE) 11/19/18 16:59 Urine Methadone Screen Negative (NEGATIVE) 11/19/18 16:59 Ur Barbiturates Screen Negative (NEGATIVE) 11/19/18 16:59 Ur Phencyclidine Scrn Negative (NEGATIVE) 11/19/18 16:59 Ur Amphetamines Screen Negative (NEGATIVE) 11/19/18 16:59 U Benzodiazepines Scrn Negative (NEGATIVE) 11/19/18 16:59 U Oth Cocaine Metabols Negative (NEGATIVE) 11/19/18 16:59 U Cannabinoids Screen Negative (NEGATIVE) 11/19/18 16:59 Influenza Typ A,B (EIA) Negative for flu a/b (NEGATIVE) 11/19/18 16:02 - Hospital Course Hospital Course: Upon Admission: Pt is a 53 yo M with pmhx of IDDM who presents to the ED for 2 week hx of generalized weakness and intermittent SOB. Pt also states that recently he has been requiring more insulin for similar meals lately. Pt states that he also noted that his sugars have been running higher lately. Pt states that he is complaint on his medication and states that he currently takes 26 units of lantus at night and a sliding scale during the day. Pt denies any recent changes in his insulin regimen or his diet. He also states that he has neuropathy and is s/p partial 5th digit R metatarsal amputation. 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 At this time he denies fevers, chills, lightheadedness, headaches, numbness, tingling, chest pain, cough, abd pain, n/v, c/d, dysuria or frequency. He admits to intermittent SOB and cough when he smokes. He also admits to L flank pain but denies hematuria. Hospital Course: Pt was being worked up for his L sided flank pain and hyperglycemia. Pt had CT scan done in the ED which showed: Nonspecific mesenteric adenopathy. Correlate clinically for possibility of mesenteric adenitis. No evidence of hydronephrosis or obstructing calculus. Hepatomegaly. Borderline splenomegaly. Bibasilar atelectasis/infiltrates. No visible pleural effusion or pneumothorax. Small hiatal hernia/distal esophageal wall thickening. The pt was then noted to have tachycardia with elevated BP, and cardio was consulted. [employer] recommended to start lopressor 25BID. Cardiology discussed outpt stress test at length with pt, as did medical team but pt had refused stress testing. Cardio recs suggest continuing 25 BID lopressor and continuing ASA and the cleared the pt for outpt follow up after Echo. Echo showed EF of 35-40%, trace aortic regurg, trace MR, trace TR, RVSP 25. Pt states that his weakness has improved and admits to better glucose control lately. Pt also denies feeling anymore palpitations and states that his abdominal pain is also improving. Pt is tolerating diet and medical plan for discharge was explained to the pt. The pt expresses understanding and agreement with the medical plan for discharge. All of pts questions and concerns were address prior to d/c. Upon d/c: The pt was told to follow the following directions upon d/c: Please follow up with your primary care doctor within 3-5 days of discharge. You have been given prescriptions for the following medications: Aspirin 81mg by mouth daily (CARDIAC RISK REDUCTION) Lipitor 20mg by mouth daily (FOR CHOLESTEROL) Metoprolol 25mg ONE PILL IN AM AND ONE IN PM (for heart rate) Motrin 600mg EVERY 8hrs NEEDED for pain Continue all other home medications as prescribed. Recommend to follow up with development intern for outpatient stress test. If your symptoms return, please go to the nearest emergency department. Discharge Exam - Head Exam Head Exam: ATRAUMATIC, NORMAL INSPECTION, NORMOCEPHALIC - Eye Exam Eye Exam: EOMI, Normal appearance, PERRL - Respiratory Exam Respiratory Exam: Clear to PA & Lateral, NORMAL BREATHING PATTERN, UNREMARKABLE. absent: Accessory Muscle Use, Decreased Breath Sounds, Rales, Rhonchi, Wheezes, Respiratory Distress - Cardiovascular Exam Cardiovascular Exam: RRR, +S1, +S2. absent: Gallop, Rubs - GI/Abdominal Exam GI & Abdominal Exam: Normal Bowel Sounds, Soft, Unremarkable. absent: Distended, Firm, Guarding - Extremities Exam Extremities exam: normal capillary refill, normal inspection, pedal pulses present - Back Exam Back exam: NORMAL INSPECTION. absent: CVA tenderness (L), CVA tenderness (R) - Neurological Exam Neurological exam: Alert, Oriented x3 - Psychiatric Exam Psychiatric exam: Normal Affect, Normal Mood - Skin Skin Exam: Dry, Normal Color, Warm Discharge Plan - Discharge Medications Prescriptions: Aspirin [Ecotrin] 81 mg PO DAILY #30 tabec Atorvastatin [Lipitor] 20 mg PO DIN #30 tab Ibuprofen [Motrin] 600 mg PO Q8H PRN #15 tab PRN Reason: Pain, Severe (8-10) Metoprolol Tartrate [Lopressor] 25 mg PO BID #60 tab - Follow Up Plan Condition: STABLE Disposition: HOME/ ROUTINE Instructions: Fatigue (DC), Diabetes Diet , Hyperglycemia, Adult (DC) Additional Instructions: Please follow up with your primary care doctor within 3-5 days of discharge. You have been given prescriptions for the following medications: Aspirin 81mg by mouth daily (CARDIAC RISK REDUCTION) Lipitor 20mg by mouth daily (FOR CHOLESTEROL) Metoprolol 25mg ONE PILL IN AM AND ONE IN PM (for heart rate) Motrin 600mg EVERY 8hrs NEEDED for pain Continue all other home medications as prescribed. Recommend to follow up with development intern for outpatient stress test. If your symptoms return, please go to the nearest emergency department. <Estephanie Dale - Last Filed: 11/24/18 07:24> Provider - Provider Date of Admission: 11/19/18 18:05 Attending physician: Estephanie Dale MD Consults: 11/20/18 04:29 Transition In Care/Readmission Reduction Routine Comment: Physician Instructions: Reason For Exam: protocol 11/20/18 08:40 Consult [Physician Consult] Routine Comment: Consulting Provider: Nicho Navarrete Consulting Physician: Nicho Navarrete Reason for Consult: tachycardia Hospital Course - Lab Results Lab Results: Most Recent Lab Values WBC 7.1 10^3/uL (4.5-11.0) 11/21/18 07:00 RBC 3.60 10^6/uL (3.5-6.1) 11/21/18 07:00 Hgb 11.0 g/dL (14.0-18.0) L 11/21/18 07:00 Hct 33.6 % (42.0-52.0) L 11/21/18 07:00 MCV 93.3 fl (80.0-105.0) 11/21/18 07:00 MCH 30.6 pg (25.0-35.0) 11/21/18 07:00 MCHC 32.7 g/dl (31.0-37.0) 11/21/18 07:00 RDW 13.4 % (11.5-14.5) 11/21/18 07:00 Plt Count 289 10^3/uL (120.0-450.0) 11/21/18 07:00 MPV 9.5 fl (7.0-11.0) 11/21/18 07:00 Gran % 61.5 % (50.0-68.0) 11/21/18 07:00 Lymph % (Auto) 25.7 % (22.0-35.0) 11/21/18 07:00 [place] % (Auto) 11.3 % (1.0-6.0) H 11/21/18 07:00 Eos % (Auto) 1.1 % (1.5-5.0) L 11/21/18 07:00 Baso % (Auto) 0.4 % (0.0-3.0) 11/21/18 07:00 Gran # 4.33 (1.4-6.5) 11/21/18 07:00 Lymph # (Auto) 1.8 (1.2-3.4) 11/21/18 07:00 [place] # (Auto) 0.8 (0.1-0.6) H 11/21/18 07:00 Eos # (Auto) 0.1 (0.0-0.7) 11/21/18 07:00 Baso # (Auto) 0.03 K/mm3 (0.0-2.0) 11/21/18 07:00 PT 13.3 SECONDS (9.4-12.5) H 11/19/18 16:02 INR 1.16 11/19/18 16:02 APTT 30.5 Seconds (25.1-36.5) 11/19/18 16:02 Sodium 137 mmol/L (132-148) 11/21/18 07:00 Potassium 4.0 mmol/L (3.6-5.0) 11/21/18 07:00 Chloride 103 mmol/L (98-107) 11/21/18 07:00 Carbon Dioxide 31 mmol/L (21-33) 11/21/18 07:00 Anion Gap 8 (10-20) L 11/21/18 07:00 BUN 15 mg/dL (7-21) 11/21/18 07:00 Creatinine 0.7 mg/dl (0.8-1.5) L 11/21/18 07:00 Est GFR ( Amer) > 60 11/21/18 07:00 Est GFR (Non-Af Amer) > 60 11/21/18 07:00 POC Glucose (mg/dL) 119 mg/dL (65-110) H 11/21/18 11:24 Random Glucose 119 mg/dL (70-110) H 11/21/18 07:00 Hemoglobin A1c 10.8 % (4.2-6.5) H 11/19/18 20:30 Calcium 8.5 mg/dL (8.4-10.5) 11/21/18 07:00 Phosphorus 3.4 mg/dL (2.5-4.5) 11/20/18 02:00 Magnesium 2.3 mg/dL (1.7-2.2) H 11/19/18 16:02 Total Bilirubin 0.3 mg/dL (0.2-1.3) 11/21/18 07:00 AST 26 U/L (17-59) 11/21/18 07:00 ALT 26 U/L (7-56) 11/21/18 07:00 Alkaline Phosphatase 139 U/L (38-126) H D 11/21/18 07:00 Troponin I < 0.01 ng/mL 11/20/18 10:09 NT-Pro-B Natriuret Pep 339 pg/mL (0-450) 11/19/18 16:02 Total Protein 6.6 g/dL (5.8-8.3) 11/21/18 07:00 Albumin 3.2 g/dL (3.0-4.8) 11/21/18 07:00 Globulin 3.4 gm/dL 11/21/18 07:00 Albumin/Globulin Ratio 0.9 (1.1-1.8) L 11/21/18 07:00 Triglycerides 218 mg/dL (35-160) H 11/20/18 02:00 Cholesterol 151 mg/dL (130-200) 11/20/18 02:00 LDL Cholesterol Direct 80 mg/dL (0-129) 11/20/18 02:00 HDL Cholesterol 27 mg/dL (29-60) L 11/20/18 02:00 Procalcitonin 0.11 NG/ML (0.19-0.49) L 11/20/18 10:09 Thyroxine (T4) 6.9 ug/dL (5.5-11.0) 11/19/18 16:02 Total T3 0.79 ng/mL (0.97-1.69) L 11/19/18 16:02 TSH 3rd Generation 4.37 mIU/mL (0.46-4.68) 11/20/18 02:00 Urine Color Yellow (YELLOW) 11/19/18 17:01 Urine Appearance Clear (CLEAR) 11/19/18 17:01 Urine pH 6.0 (4.7-8.0) 11/19/18 17:01 Ur Specific [place] 1.020 (1.005-1.035) 11/19/18 17:01 Urine Protein Negative mg/dL (<30 mg/dL) 11/19/18 17:01 Urine Glucose (UA) >=1000 mg/dL (NEGATIVE) 11/19/18 17:01 Urine Ketones Negative mg/dL (NEGATIVE) 11/19/18 17:01 Urine Blood Negative (NEGATIVE) 11/19/18 17:01 Urine Nitrate Negative (NEGATIVE) 11/19/18 17:01 Urine Bilirubin Negative (NEGATIVE) 11/19/18 17:01 Urine Urobilinogen 1.0 E.U./dL (<1 E.U./dL) H 11/19/18 17:01 Ur Leukocyte Esterase Negative Gayle/uL (NEGATIVE) 11/19/18 17:01 Urine Opiates Screen Negative (NEGATIVE) 11/19/18 16:59 Urine Methadone Screen Negative (NEGATIVE) 11/19/18 16:59 Ur Barbiturates Screen Negative (NEGATIVE) 11/19/18 16:59 Ur Phencyclidine Scrn Negative (NEGATIVE) 11/19/18 16:59 Ur Amphetamines Screen Negative (NEGATIVE) 11/19/18 16:59 U Benzodiazepines Scrn Negative (NEGATIVE) 11/19/18 16:59 U Oth Cocaine Metabols Negative (NEGATIVE) 11/19/18 16:59 U Cannabinoids Screen Negative (NEGATIVE) 11/19/18 16:59 Influenza Typ A,B (EIA) Negative for flu a/b (NEGATIVE) 11/19/18 16:02 Attending/Attestation - Attestation I have personally seen and examined this patient.: Yes I have fully participated in the care of the patient.: Yes I have reviewed all pertinent clinical information, including history, physical exam and plan: Yes Notes (Text): 53 year old male with past medical history of diabetes who presented with complaint of generalized weakness and shortness of breath. He was found to have poorly controlled diabetes and also junctional tachycardia on the telemonitor. TSH normal. Serial cardiac enzymes were negative. Cardiology evaluation was appreciated and patient was started on metoprolol, lipitor and aspirin. Echocardiogram. Cardiology offered stress test which patient declined. His sugars improved with insulin ss and levemir. CT abd/pelvis showed possible mesenteric adenitis. He was on motrin prn for pain. He reported abdominal pain improved. Patient is discharged home to follow up with pmd. Follow up with cardiology for outpatient stress test. Counselled on medication compliance. Estephanie Dale MD Hospitalist.
--- NOTE | 2018-11-21 19:25 | CARD ---
APPROVED REPORT Date of service: 11/20/2018 EXAM: Two-dimensional and M-mode echocardiogram with Doppler and color Doppler. INDICATION JUNCTIONAL TACHYCARDIA,DM 2D DIMENSIONS Left Atrium (2D)3.6 (1.6-4.0cm)IVSd1.2 (0.7-1.1cm) LVDd4.1 (3.9-5.9cm)PWd1.4 (0.7-1.1cm) M-Mode DIMENSIONS Aortic Root3.50 (2.2-3.7cm)Aortic Cusp Exc.1.90 (1.5-2.0cm) Aortic Valve AoV Peak Opzlynsy347.0cm/Alberto Peak GR.7mmHg Mitral Valve E/A ratio0.0 TDI E/Lateral E'0.0E/Medial E'0.0 Pulmonary Valve PV Peak Eeqtlxxz20.1cm/sPV Peak Grad.2mmHg Tricuspid Valve TR Peak [id number]/sRAP [id number] Peak Gr.15mmHg [id number] LEFT VENTRICLE The left ventricle is normal size. There is mild concentric left ventricular hypertrophy. The systolic function is moderately impaired.EF-35-40% There is moderate hypokinesis in the apical anterior wall. Transmitral Doppler flow pattern is Grade III-reversible restrictive diastolic dysfunction. No left ventricle thrombus noted on this study. There is no ventricular septal defect visualized. There is no left ventricular aneurysm. There is no mass noted in the left ventricle. RIGHT VENTRICLE The right ventricle is normal size. There is normal right ventricular wall thickness. The right ventricular systolic function is normal. ATRIA The left atrium size is normal. The right atrium size is normal. The interatrial septum is intact with no evidence for an atrial septal defect. AORTIC VALVE The aortic valve is thickened but opens well. There is trace aortic regurgitation. There is no aortic valvular stenosis. There is no aortic valvular vegetation. MITRAL VALVE The mitral valve is not well visualized. Mitral regurgitation is trace. There is no mitral valve stenosis. There is no evidence of mitral valve prolapse. TRICUSPID VALVE The tricuspid valve leaflets are thickened , but open well. There is trace tricuspid regurgitation.RVSP-25 mmof hg. There is no tricuspid valve stenosis. There is no tricuspid valve prolapse or vegetation. PULMONIC VALVE The pulmonary valve is normal in structure. There is no pulmonic valvular regurgitation. There is no pulmonic valvular stenosis. GREAT VESSELS The aortic root is normal in size. The ascending aorta is normal in size. The pulmonary artery is normal. The IVC is normal in size and collapses >50% with inspiration. PERICARDIAL EFFUSION There is no pleural effusion. There is no pericardial effusion. <Conclusion> Normal chamber sizer. EF-35-40% There is trace aortic regurgitation. Mitral regurgitation is trace. There is trace tricuspid regurgitation.RVSP-25 mmof hg. The IVC is normal in size and collapses >50% with inspiration. There is no pericardial effusion.
--- NOTE | 2018-11-22 08:09 | PN ---
DATE: 11/21/2018 REASON FOR CONSULTATION: Followup cardiac evaluation, tachycardia with generalized weakness. This note is in addition to dictated by nurse practitioner. Discussed in length with the patient for the risk stratification. The patient needed stress test. The patient does not want the stress test, yesterday also he refused to Dr. Ross and stated he does not want to come to us, offered the patient to go to the other Cardiology he want, but need to have further risk stratification stress test. Continue interim low-dose beta-donell at 25 p.o. b.i.d. Continue aspirin. We will review the echo if done. Thank you Dr. Dale for providing us the opportunity in taking care of the patient, Liam Martinezjohnny. Nicho Navarrete MD
== END 2018-11-21 12:55 | disposition home or self-care (01) ==
LOC: ED 14:32 → INTOOBSV 18:05 → ERH 18:05 → 2RNO 11-20 01:09
PROVIDERS: ADMIT Internal Medicine; ATTEND Internal Medicine
DX: E11.65 Type 2 diabetes mellitus with hyperglycemia (principal); E11.42 Type 2 diabetes mellitus with diabetic polyneuropathy; I47.1 Supraventricular tachycardia; D64.9 Anemia, unspecified; F17.210 Nicotine dependence, cigarettes, uncomplicated; Z79.4 Long term (current) use of insulin
CPT/HCPCS: 36415; 71045; 74176; 80053; 80061; 81003; 82948; 83036; 83735; 83880; 84100; 84145; 84436; 84443; 84480; 84484; 85025; 85610; 85730; 87804; 93005; 93306; 96372; 99285; G0378; G0480; J7040

== ENCOUNTER 2019-01-02 07:34 | Outpatient (CLI) | payer BC | END 2019-01-02 07:35 | disposition home or self-care (01) | LOC: CARDIO 07:34 ==

== ENCOUNTER 2019-01-08 11:56 | Outpatient (CLI) | payer BC | END 2019-01-08 11:57 | disposition home or self-care (01) | LOC: CARDIO 11:56 ==

== ENCOUNTER 2019-03-06 09:38 | Outpatient (CLI) | payer BC | END 2019-03-06 09:39 | disposition home or self-care (01) | LOC: RAD 09:38 | DX: R06.02 Shortness of breath (principal) ==